=== PATIENT | female | born 1950 | race Two or more races ===

== ENCOUNTER 2020-08-14 06:51 | Day surgery (SDC) | payer OTHER ==
[~2020-08-14 06:51] MED LIST: EVISTA60 MG PO; LEVOXYL75 MCG PO; LISINOP PO; ZETIA10 MG PO
[2020-08-14] MEDS ORDERED: MACROBID 100 M100 MG PO (11:06)
[2020-08-14] MEDS ORDERED: ULTRACET PO (11:06)
== END 2020-08-14 15:15 | disposition home or self-care (01) ==
LOC: CIR.AMB 06:51
PROVIDERS: ATTEND Obstetrics & Gynecology Gynecology
DX: N81.3 Complete uterovaginal prolapse (principal); Z20.828 Contact with and (suspected) exposure to other viral communicable diseases